=== PATIENT | male | born 1930 | race Caucasian/White ===

== ENCOUNTER 2016-09-06 04:52 | Observation (INO) | payer OTHER, BC ==
[~2016-09-06] VITALS: Ht 172.7 cm; Wt 96.1 kg
[~2016-09-06 04:52] MED LIST: AMOX TR-K CLV1 EAC4 PO; AMOXICILLIN875 MG PO; ANTIVERT25 MG PO; AVODART0.5 MG PO; BACTRIM,SEPT1 TABLET PO; CARBIDOPA/LEVO1 EACH PO; CELEBREX200 MG PO; CREON 241 CAPSULE PO; ERYTHROMYC1 APPLICAT LEFT EYE; GENTAMICIN SULFA5 ML BOTH EYES; HYDROCHLOROTHIA25 MG PO; KEFLEX500 MG PO; LOPERAMIDE2 M1 PO; METAMUCIL CAPSU1 CAP PO; METOPROLOL SUCC50 MG PO; METOPROLOL TART50 MG PO; NORCO 5/3251 TABLET PO; PRAVASTATIN SOD40 MG PO; PRIMIDONE50 MG PO; PROTONIX40 MG PO; QUESTRAN PACKET4 GM PO; SYMAX DUOTAB0.375 MG PO; SYMAX-SR0.375 MG PO; VALTREX1000 MG PO; WARFARIN SODIUM3 MG PO; WARFARIN SODIUM4 MG PO; WARFARIN SODIUM5 MG PO; ZESTRIL40 MG PO; ZOFRAN ODT4 MG PO
[2016-09-06 05:56] LABS: EOSINOPHIL (%) 0.1 % (0-5); HEMATOCRIT 41.8 % (38.0-50.0); IMMATURE GRANULOCYTE (%) 0.6 % (0.0-0.7); INSTRUMENT ABS NEUTROPHIL CT 5.3 K/uL; LYMPHOCYTE COUNT 0.5 K/uL (1.0-2.8); MCHC 33.7 G/DL (30.0-36.0); MCV 97.9 FL (86-99); MONOCYTE (%) 12.9 % (3-12); MONOCYTE COUNT 0.9 K/uL (0-0.8); NEUTROPHIL (%) 78.9 % (45-76); NEUTROPHIL COUNT 5.3 K/uL (1.8-6.4); PLATELET COUNT 132 K/uL (156-360); RBC DIS.WIDTH-CV 12.3 % (11.8-14.6); RBC DIS.WIDTH-SD 44.7 % (39-53); RED BLOOD COUNT 4.27 M/uL (4.00-5.50); WHITE BLOOD COUNT 6.8 K/uL (4.1-10.2)
[2016-09-06 06:08] LABS: CHLORIDE 101 mEq/L (99-109); POTASSIUM 3.6 mEq/L (3.7-5.4); SODIUM 136 mEq/L (136-147)
[2016-09-06 06:09] LABS: GLUCOSE 183 mg/dL (70-99)
[2016-09-06 06:11] LABS: ANION GAP 9 MEQ/L (2-14)
[2016-09-06 06:13] LABS: GFR ESTIMATE (CALCULATED) > 59 mL/min/
[2016-09-06 06:14] LABS: UREA NITROGEN (BUN) 17 mg/dL (9-23)
[2016-09-06 06:17] LABS: TROP-I INTERPRETATION NEGATIVE; TROPONIN-I 0.01 ng/mL (0.0-0.30)
[2016-09-06 06:22] LABS: ADD MIUA? YES; BILIRUBIN NEGATIVE; BLOOD LARGE; COLOR YELLOW ((YELLOW)); GLUCOSE (STRIP) 50; KETONES 20; LEUKOCYTES NEGATIVE; NITRITE NEGATIVE; PROTEIN (STRIP) 100; UROBILINOGEN 0.2 MG/DL (0.2-1.0)
[2016-09-06 06:26] LABS: BACTERIA NONE SEEN /HPF; EPITHELIAL CELLS RARE /HPF; MUCUS TRACE /LPF; RED BLOOD CELLS 0-5 /HPF (0-5); UCUL ADDED? NO; WHITE BLOOD CELLS 0-5 /HPF (0-5)
[2016-09-06 06:46] LABS: INFLUENZA A VIRAL ANTIGEN POSITIVE; INFLUENZA B VIRAL ANTIGEN NEGATIVE
[2016-09-06] MEDS ORDERED: METAMUCIL0.52 GM PO (09:09)
[2016-09-06] MEDS ORDERED: WARFARIN SODIUM1 MG PO (09:13)
[2016-09-06] MEDS ORDERED: COUMADIN2.5 MG PO (09:14)
[2016-09-06 10:40] VITALS: BP 167/92
[2016-09-06 14:11] LABS: INTER. NORMALIZED RATIO 1.8; PROTHROMBIN TIME 18.4 (9.2-11.2)
[2016-09-06 16:00] VITALS: BP 168/75
[2016-09-06 16:14] LABS: C DIFF TOXIN NEGATIVE (NEGATIVE); PROBE CHECK PASS; SPECIMEN PROCESSING CONTROL PASS
[2016-09-06 19:45] VITALS: BP 137/75
[2016-09-07 00:18] VITALS: BP 154/79
[2016-09-07 03:25] VITALS: BP 129/68
[2016-09-07 08:00] VITALS: BP 143/74
[2016-09-07 08:59] LABS: HEMATOCRIT 38.7 % (38.0-50.0); MCH 33.1 PG (29.0-34.0); MCHC 33.1 G/DL (30.0-36.0); PLATELET COUNT 132 K/uL (156-360); RBC DIS.WIDTH-CV 12.7 % (11.8-14.6); RBC DIS.WIDTH-SD 46.6 % (39-53); RED BLOOD COUNT 3.87 M/uL (4.00-5.50)
[2016-09-07 09:02] LABS: ANION GAP 7 MEQ/L (2-14); CHLORIDE 104 MEQ/L (99-109); GFR ESTIMATE (CALCULATED) > 59 mL/min/; GLUCOSE 158 mg/dL (70-99); POTASSIUM 3.6 MEQ/L (3.7-5.4); SAMPLE HEMOLYSIS CHECK 0; SAMPLE ICTERIC CHECK 0; SAMPLE LIPEMIA CHECK 0; SODIUM 139 MEQ/L (136-147); UREA NITROGEN (BUN) 12 mg/dL (9-23)
[2016-09-07 09:05] LABS: INTER. NORMALIZED RATIO 1.8; PROTHROMBIN TIME 18.3 (9.2-11.2)
[2016-09-07 09:12] LABS: WHITE BLOOD COUNT 4.2 K/uL (4.1-10.2)
[2016-09-07] MEDS ORDERED: LEVAQUIN500 MG PO (09:56)
[2016-09-07] MEDS ORDERED: OSELTAMIVIR PHO30 MG PO (09:56)
[2016-09-07 12:35] VITALS: BP 138/76
== END 2016-09-07 16:06 | disposition home health service (06) ==
LOC: EME 04:52 → EDOF 08:33 → 5WEST 10:10
PROVIDERS: Emergency Medicine; Internal Medicine
DX: J10.00 Influenza due to other identified influenza virus with unspecified type of pneumonia (principal); J18.9 Pneumonia, unspecified organism; J96.01 Acute respiratory failure with hypoxia; E87.6 Hypokalemia; I10 Essential (primary) hypertension; D69.6 Thrombocytopenia, unspecified; E78.00 Pure hypercholesterolemia, unspecified; N40.0 Benign prostatic hyperplasia without lower urinary tract symptoms; R31.29 Other microscopic hematuria; Z86.711 Personal history of pulmonary embolism; Z86.718 Personal history of other venous thrombosis and embolism
CPT/HCPCS: 70450; 71010; 80048; 81003; 83605; 84484; 85025; 85027; 85610; 87040; 87493; 87502; 93005; 94640; 99281; 99285; G0103; G0378; G8987 GO CI; G8988 GO CH; G8989 GO CI; J0696; J7030; J7050

== ENCOUNTER 2016-12-25 14:39 | Emergency (ER) | payer OTHER, BC ==
[~2016-12-25] VITALS: Ht 172.7 cm; Wt 95.9 kg
[~2016-12-25 14:39] MED LIST changes: +COUMADIN2.5 MG PO; +LEVAQUIN500 MG PO; +METAMUCIL0.52 GM PO; +OSELTAMIVIR PHO30 MG PO; +WARFARIN SODIUM1 MG PO
[2016-12-25 15:33] LABS: HEMATOCRIT 41.1 % (38.0-50.0); MCH 32.9 PG (29.0-34.0); MCHC 34.3 G/DL (30.0-36.0); MEAN PLAT.VOLUME 9.5 uM^3 (9.0-12.4); PLATELET COUNT 178 K/uL (156-360); RBC DIS.WIDTH-SD 42.3 % (39-53); RED BLOOD COUNT 4.28 M/uL (4.00-5.50); WHITE BLOOD COUNT 7.4 K/uL (4.1-10.2)
[2016-12-25 15:43] LABS: CHLORIDE 103 mEq/L (99-109); INTER. NORMALIZED RATIO 2.4; PROTHROMBIN TIME 25.4 (9.2-11.2); SODIUM 136 mEq/L (136-147)
[2016-12-25 15:44] LABS: GLUCOSE 228 mg/dL (70-99)
[2016-12-25 15:46] LABS: ANION GAP 6 MEQ/L (2-14)
[2016-12-25 15:48] LABS: GFR ESTIMATE (CALCULATED) > 59 mL/min/
[2016-12-25 15:49] LABS: UREA NITROGEN (BUN) 20 mg/dL (9-23)
[2016-12-25 16:18] LABS: ADD MIUA? YES; BILIRUBIN NEGATIVE; BLOOD LARGE; COLOR AMBER ((YELLOW)); GLUCOSE (STRIP) NEGATIVE; KETONES NEGATIVE; LEUKOCYTES TRACE; NITRITE NEGATIVE; PROTEIN (STRIP) 100; SPECIFIC GRAVITY 1.015 (1.000-1.030); UROBILINOGEN 0.2 MG/DL (0.2-1.0)
[2016-12-25 16:53] LABS: RED BLOOD CELLS TNTC /HPF (0-5)
[2016-12-25 16:54] LABS: AMORPHOUS URATES CRYSTALS 3+; BACTERIA 2+ /HPF; EPITHELIAL CELLS RARE /HPF; MUCUS RARE /LPF; UCUL ADDED? NO; WHITE BLOOD CELLS 0-5 /HPF (0-5)
[2016-12-25] MEDS ORDERED: KEFLEX500 MG PO (19:27)
[2016-12-25 19:50] VITALS: BP 165/81
== END 2016-12-25 19:51 | disposition home or self-care (01) ==
LOC: EME 14:39
DX: N39.0 Urinary tract infection, site not specified (principal); R31.9 Hematuria, unspecified; N28.1 Cyst of kidney, acquired; I10 Essential (primary) hypertension; E78.5 Hyperlipidemia, unspecified; Z86.711 Personal history of pulmonary embolism; Z86.718 Personal history of other venous thrombosis and embolism; Z79.01 Long term (current) use of anticoagulants
CPT/HCPCS: 74176; 80048; 81003; 85027; 85610; 86900; 86901; 99281; 99283; J7030

== ENCOUNTER 2016-12-31 01:12 | Emergency (ER) | payer OTHER, BC ==
[~2016-12-31] VITALS: Ht 172.7 cm; Wt 94.1 kg
[2016-12-31 03:39] LABS: HEMATOCRIT 40.5 % (38.0-50.0); MCH 32.9 PG (29.0-34.0); MCHC 33.6 G/DL (30.0-36.0); MCV 98.1 FL (86-99); MEAN PLAT.VOLUME 9.7 uM^3 (9.0-12.4); PLATELET COUNT 155 K/uL (156-360); RBC DIS.WIDTH-CV 12.3 % (11.8-14.6); RBC DIS.WIDTH-SD 44.3 % (39-53); RED BLOOD COUNT 4.13 M/uL (4.00-5.50); WHITE BLOOD COUNT 7.1 K/uL (4.1-10.2)
[2016-12-31 03:42] LABS: ADD MIUA? YES; BILIRUBIN NEGATIVE; BLOOD LARGE; COLOR BROWN ((YELLOW)); GLUCOSE (STRIP) NEGATIVE; KETONES NEGATIVE; LEUKOCYTES TRACE; NITRITE NEGATIVE; PROTEIN (STRIP) 100; SPECIFIC GRAVITY 1.016 (1.000-1.030); UROBILINOGEN 0.2 MG/DL (0.2-1.0)
[2016-12-31 03:47] LABS: CHLORIDE 106 mEq/L (99-109); SODIUM 138 mEq/L (136-147)
[2016-12-31 03:49] LABS: GLUCOSE 190 mg/dL (70-99)
[2016-12-31 03:51] LABS: ANION GAP 6 MEQ/L (2-14)
[2016-12-31 03:53] LABS: GFR ESTIMATE (CALCULATED) > 59 mL/min/
[2016-12-31 03:54] LABS: UREA NITROGEN (BUN) 17 mg/dL (9-23)
[2016-12-31 03:59] LABS: POTASSIUM 3.8 mEq/L (3.7-5.4)
[2016-12-31 03:59] LABS: BACTERIA RARE /HPF; EPITHELIAL CELLS RARE /HPF; MUCUS 1+ /LPF; RED BLOOD CELLS TNTC /HPF (0-5); UCUL ADDED? NO
[2016-12-31] MEDS ORDERED: CEPHALEXIN500 MG PO (04:02)
[2016-12-31 04:30] LABS: INTER. NORMALIZED RATIO 2.2; PROTHROMBIN TIME 22.9 (9.2-11.2); PTT 34.1 (25-32)
[2016-12-31 06:10] VITALS: BP 115/64
== END 2016-12-31 06:21 | disposition home or self-care (01) ==
LOC: EME 01:12
PROVIDERS: Emergency Medicine
DX: R31.9 Hematuria, unspecified (principal); Z79.01 Long term (current) use of anticoagulants; R30.0 Dysuria; Z86.718 Personal history of other venous thrombosis and embolism; Z86.711 Personal history of pulmonary embolism; I10 Essential (primary) hypertension; E78.5 Hyperlipidemia, unspecified
CPT/HCPCS: 80048; 81003; 85027; 85610; 85730; 99281; 99284